=== PATIENT | female | born 1985 | race Caucasian/White ===

== ENCOUNTER 2018-04-01 11:52 | Emergency (ER) | payer OTHER ==
--- NOTE | 2018-04-01 13:33 | RAD ---
Indication: Left rib injury. 4 views left RIBS and PA view of the chest demonstrates no mediastinal shift. Heart is of normal size and configuration. Lung haley appear clear. No pneumothorax is noted. IMPRESSION: No fracture of left ribs is noted.
[2018-04-01 13:51] VITALS: BP 117/73
--- NOTE | 2018-04-01 18:25 | ED ---
Indigo Ovalles Julia, scribed for Soham Reynolds MD on 04/01/18 at 1301 . HPI Chest Pain - HPI Summary HPI Summary: This patient is a 33 year old F presenting to [facility] with a chief complaint of lower left rib and swelling pain after getting caught in between a cow and a metal gate earlier today. Patient reports SOB. Patient denies bruising of the area. The patient rates the pain 4/10 in severity. Pain aggravated by deep breath. LNMP was two weeks ago. Pt denies chance of . - History of Current Complaint Chief Complaint: EDChestWallPain Time Seen by Provider: 04/01/18 12:57 Hx Obtained From: Patient Onset/Duration: Started Hours Ago Pain Intensity: 4 - Allergy/Home Medications Allergies/Adverse Reactions: Allergies Allergy/AdvReac Type Severity Reaction Status Date / Time cefaclor [From [facility]] Allergy Unknown Verified 04/01/18 11:59 Reaction Details Home Medications: Home Medications NK [No Home Medications Reported] 04/01/18 [History Confirmed 04/01/18] PMH/Surg Hx/FS Hx/Imm Hx Cardiovascular History: Denies: Hx Myocardial Infarction History: Denies: Hx Chronic Renal Failure Infectious Disease History: Yes Infectious Disease History: Denies: Traveled Outside the [place] in Last 30 Days - Family History Known Family History: Positive: Hypertension - Social History Occupation: Student Alcohol Use: Occasionally Substance Use Type: Reports: None Smoking Status (MU): Former Smoker Review of Systems Positive: Other - rib pain Positive: Shortness Of Breath All Other Systems Reviewed And Are Negative: Yes Physical Exam - Summary Physical Exam Summary: Appearance: Well-appearing, Well-nourished Skin: Warm, Dry, No rash Eyes: Normal, PERRL, EOMI, sclera anicteric ENT: Normal Neck: Supple, nontender Respiratory: Clear to auscultation Cardiovascular: S1, S2, no murmur, no rub, no gallop Chest: TTP to the left anterior rib Abdomen: Soft, nontender, no organomegaly Bowel sounds: Present Musculoskeletal: Strength/ROM Intact, no edema, pulses symmetrical, tender to left lower anterior rib Neurological: Normal, A&Ox3, cranial nerves II-XII WNL, follows commands, gait not tested, Psychiatric: affect normal, behavior appropriate, dressed appropriately, judgment intact Triage Information Reviewed: Yes Vital Signs On Initial Exam: Initial Vitals Temp Pulse Resp BP Pulse Ox 99.2 F 70 16 131/76 99 04/01/18 11:55 04/01/18 11:55 04/01/18 11:55 04/01/18 11:55 04/01/18 11:55 Vital Signs Reviewed: Yes Diagnostics - Vital Signs Vital Signs Temp Pulse Resp BP Pulse Ox 04/01/18 12:56 18 04/01/18 11:55 99.2 F 70 16 131/76 99 - Laboratory Lab Statement: Any lab studies that have been ordered have been reviewed, and results considered in the medical decision making process. - Radiology Ribs w/ CXR Radiology Interpretation Completed By: Radiologist - No fracture of left ribs is noted. ED Physician has reviewed this report. Re-Evaluation - Re-Evaluation 1 Re-Evaluation Time: 13:55 Comment: Pt is informed of results. Pt will be discharged. Pt is agreeable with this plan. Chest Pain Course/Dx - Course Course Of Treatment: 33 y/o F presents to ED with left lower rib pain secondary to being trapped between a cow and a gate. Pain aggravated by breathing. CXR with Ribs is negative for fracture. Pt declines pain medication. Pt is discharged home with return precautions and will follow up with her doctor. - Diagnoses Provider Diagnoses: Rib contusion Discharge - Sign-Out/Discharge Documenting (check all that apply): Discharge/Admit/Transfer - Discharge Plan Condition: Stable Disposition: HOME Patient Education Materials: Rib Contusion (ED) Referrals: [facility] [Primary Care Provider] - If Needed (Follow up with your primary care provider if symptoms persist) - Billing Disposition and Condition Condition: STABLE Disposition: HOME The documentation as recorded by the Indigo mcmanus Julia accurately reflects the service I personally performed and the decisions made by me, Soham Reynolds MD.
== END 2018-04-01 13:56 | disposition home or self-care (01) ==
LOC: ED 11:52
DX: S20.212A Contusion of left front wall of thorax, initial encounter (principal); W55.22XA Struck by cow, initial encounter; Y92.9 Unspecified place or not applicable; Z87.891 Personal history of nicotine dependence; R06.02 Shortness of breath
CPT/HCPCS: 99282